=== PATIENT | female | born 1985 | race Caucasian/White ===

== ENCOUNTER 2016-12-09 08:36 | Emergency (ER) | payer SELFPAY ==
[2016-12-09 08:45] VITALS: BP 134/87
--- NOTE | 2016-12-09 09:02 | ER Document Report ---
HPI - HPI Patient complains to provider of: dental pain, sore throat Onset: Yesterday Onset/Duration: Gradual Quality of pain: Achy Pain Level: 3 Context: 31-year-old female complaining of left lower third molar decay and chipping, left-sided sore throat, left ear pain. No Fever or chills. She came because her family told her that she could from a mouth infection. Associated Symptoms: None Exacerbated by: Denies Relieved by: Denies Similar symptoms previously: No Recently seen / treated by doctor: No - ROS ROS below otherwise negative: Yes Systems Reviewed and Negative: Yes All other systems reviewed and negative - REPRODUCTIVE Reproductive: DENIES: : - DERM Skin Color: Normal Past Medical History - General Information source: Patient - Social History Smoking Status: Current Every Day Smoker Frequency of alcohol use: None Drug Abuse: None Lives with: Family Family History: CAD, Hyperlipidemia, Hypertension Patient has suicidal ideation: No Patient has homicidal ideation: No - Past Medical History Cardiac Medical History: Reports: Hx Hypertension Renal/ Medical History: Denies: Hx Peritoneal Dialysis Surgical Hx: Negative - Immunizations Immunizations up to date: No Hx Diphtheria, Pertussis, Tetanus Vaccination: No - unk Vertical Provider Document - CONSTITUTIONAL Agree With Documented VS: Yes Exam Limitations: No Limitations - INFECTION CONTROL TRAVEL OUTSIDE OF THE [place] IN LAST 30 DAYS: No - HEENT HEENT: Normocephalic, Pharyngeal Erythema - left more than right, gingival inflammation left 3rd molar area, no tooth there now, decay right 3rd molar. unable to see either TM due to cerman impaction. negative: Conjuctival Injection - NECK Neck: Supple, Lymphadenopathy-Left - submandibular, small - RESPIRATORY Respiratory: Breath Sounds Normal, No Respiratory Distress O2 Sat by Pulse Oximetry: 97 - CARDIOVASCULAR Cardiovascular: Regular Rate, Regular Rhythm - MUSCULOSKELETAL/EXTREMETIES Musculoskeletal/Extremeties: MAEW, FROM - NEURO Level of Consciousness: Awake, Alert, Appropriate - DERM Integumentary: Warm, Dry, No Rash Course - Vital Signs Vital signs: Temp Pulse Resp BP Pulse Ox 98.6 F 63 14 134/87 H 97 12/09/16 08:45 12/09/16 08:45 12/09/16 08:45 12/09/16 08:45 12/09/16 08:45 Discharge - Discharge Clinical Impression: sore throat, dental decay and pain, cerumen impaction Condition: Good Disposition: HOME, SELF-CARE Instructions: Penicillin V K ([facility]), Acetaminophen, Anti-Inflammatory Medication ([facility]), Dentist, Family Physicians / Practices Additional Instructions: to er if symptoms worsen See dentist Finished antibiotics even if you feel better Please complete the patient satisfaction survey if you get one, and return it.. If you do not receive a survey, then you can go to the [facility] website, [email or web address] and place your comments about your very good care. Thank you very much. It was a pleasure being your medical provider today. Prescriptions: Ibuprofen [Motrin 600 mg Tablet] 600 mg PO Q8HP PRN #30 tablet PRN Reason: Penicillin V Potassium [Penicillin Vk 500 mg Tablet] 500 mg PO QID #40 tablet
== END 2016-12-09 09:35 | disposition home or self-care (01) ==
LOC: ER 08:36
DX: J02.9 Acute pharyngitis, unspecified (principal); K08.9 Disorder of teeth and supporting structures, unspecified; H61.23 Impacted cerumen, bilateral; I10 Essential (primary) hypertension; F17.200 Nicotine dependence, unspecified, uncomplicated
CPT/HCPCS: 99282